=== PATIENT | male | born 1975 | race Two or more races ===

== ENCOUNTER 2019-12-14 16:10 | Emergency (ER) | payer OTHER ==
[2019-12-14 16:40] VITALS: TEMP 98.5; BMI 24.1
--- NOTE | 2019-12-14 17:04 | PDOC ---
History of Present Illness - General Chief Complaint: Palpitations Stated Complaint: PALPITATIONS Time Seen by Provider: 12/14/19 16:27 History Source: Patient Exam Limitations: No Limitations - History of Present Illness Initial Comments: 12/14/19 17:01 HPI: This is a 44 y/o male with no PMH presenting to the ED due to palpitations since Monday. The palpitations last a few seconds, and he has been experiencing them 1-2x per hour. They do not wake him up from sleep. He looked at his apple watch when he was feeling them, and said his pulse verito to around 80 for a few seconds from the 60's which is his baseline. He reports that his head feels alok rd during them, but denies weakness or lightheadedness. He denies any accompanying chest pain, SOB, N/V, or diaphoresis during these episodes. Nothing exacerbates them, and nothing alleviates them although he states when he is distracted he doesn't feel them as much. He tried to make an appointment with his primary care but they didn't have an appointment until the end of the month. ROS: GENERAL/CONSTITUTIONAL: No fever/chills. No weakness. CARDIOVASCULAR: No chest pain or shortness of breath. Yes palpitations RESPIRATORY: No cough, wheezing GASTROINTESTINAL: No nausea, vomiting, diarrhea or constipation. GENITOURINARY: No dysuria, frequency, or change in urination. NEUROLOGIC: No headache, vertigo, loss of consciousness, or change in str ength/sensation. HEMATOLOGIC/LYMPHATIC: No anemia, easy bleeding, or history of blood clots. ALLERGIC/IMMUNOLOGIC: No hives or skin allergy. PMH: Denied PSx: Denied Social Hx: Denied tobacco, 1-3 beers per evening Meds: Denied Allergies: Denied PE: GENERAL: Awake, alert, and fully oriented, in no acute distress. Patient laying in bed, conversing normally. HEAD: No signs of trauma EYES: PERRLA, EOMI, sclera anicteric, conjunctiva clear NECK: Normal ROM, supple, no lymphadenopathy, JVD, or masses LUNGS: Breath sounds equal, clear to auscultation bilaterally. No wheezes, and no crackles HEART: Regular rate and rhythm, normal S1 and S2, no murmurs, rubs or gallops ABDOMEN: Soft, nontender, normoactive bowel sounds. No guarding, no rebound. No masses EXTREMITIES: Normal range of motion, no edema. No clubbing or cyanosis. No cords, erythema, or tenderness NEUROLOGICAL: Cranial nerves II through XII grossly intact. Normal speech, normal gait SKIN: Warm, Dry, normal turgor, no rashes or lesions noted. MDM: This is a 44 y/o male with no PMH presenting to the ED due to palpitations since Monday. Pt in good health, regularly exercises, and has no cardiac risk factors. He reports the palpitations only bring his pulse up to 80. - Low suspicion for ACS or arrhythmia. - EKG with no acute ischemic changes, sinus, no t-wave inversions - Will do basic labs and one troponin - CBC - CMP - Troponin - Troponin neg, CBC and CMP without any acute concerns - Will d/c with return precautions and follow-up with PCP Past History - Medical History Allergies/Adverse Reactions: Allergies Allergy/AdvReac Type Severity Reaction Status Date / Time No Known Allergies Allergy Verified 12/14/19 16:18 Home Medications: Ambulatory Orders NK [No Known Home Medication] 12/14/19 COPD: No - Psycho-Social/Smoking History Smoking History: Never smoked Have you smoked in the past 12 months: No Information on smoking cessation initiated: No - Substance Abuse Hx (Audit-C & DAST Scrn) How often the patient has a drink containing alcohol: Monthly or less Number of drinks the patient has on a typical day: 1 or 2 How often the patient has six or more drinks on one occasion: Never Score: In Men: 4 or > Positive; In Women: 3 or > Positive: 1 Screen Result (Pos requires Nsg. Audit-10AR): Negative In the last yr the pt used illegal drug/Rx for NonMed reason: No Score: Yes response is considered Positive: 0 Screen Result (Positive result requires Nsg. DAST-10): Negative *Physical Exam - Vital Signs Last Vital Signs Temp Pulse Resp BP Pulse Ox 98.5 F 66 18 147/97 100 12/14/19 16:11 12/14/19 16:11 12/14/19 16:11 12/14/19 16:11 12/14/19 16:11 Heart Score/ECG Review - History History: Slightly suspicious - Electrocardiogram EKG: Normal - Age Age: </= 45 - Risk Factors Risk Factors Heart Score: Yes Positive family hx of cardiac disease Based on the list above the patient has:: 1-2 risk factors - Troponin Troponin: </= normal limit - Score Heart Score - Total: 1 - ECG Intrepretation Comment:: 12/14/19 17:[address]-elevations or T-wave inversions. Vent rate 57bpm. VT interval 126ms. QRS duration 92ms. QT/QTc 416/404. ED Treatment Course - LABORATORY CBC & Chemistry Diagram: 12/14/19 16:46 12/14/19 16:46 Discharge - Discharge Information Problems reviewed: Yes Clinical Impression/Diagnosis: Palpitations Condition: Stable Disposition: HOME - Admission No - Follow up/Referral - Patient Discharge Instructions Patient Printed Discharge Instructions: DI for Palpitations Additional Instructions: You came to the ED because you felt that you had palpitations. We did labwork, and an EKG and everything was normal. You did not have any symptoms while you were here. You should follow-up with your primary care provider in the next few weeks. Please return to the ED if you experience palpitations that wont go away, chest pain, SOB, or any other new or concerning symptoms. - Post Discharge Activity
[2019-12-14 17:12] LABS: BASO % 1.2 % (0-2.0); EOS % 1.9 % (0-4.5); HEMATOCRIT 40.5 % (35.4-49); LYMPH % 27.6 % (8-40); MCH 32.8 pg (25.7-33.7); MCHC 34.5 g/dl (32.0-35.9); MEAN CELL VOLUME 95.1 fl (80-96); MEAN PLT VOLUME 9.2 fl (7.5-11.1); MONO % 8.3 % (3.8-10.2); PLATELET COUNT 295 K/MM3 (134-434); RBC 4.26 M/mm3 (4.00-5.60); RDW 11.6 % (11.9-15.9); WHITE BLOOD COUNT 6.3 K/mm3 (4.0-10.8)
--- NOTE | 2019-12-14 17:14 | PDOC ---
Attending Attestation - Resident Resident Name: NachoNancy - ED Attending Attestation I have performed the following: I have examined & evaluated the patient, The case was reviewed & discussed with the resident, I agree w/resident's findings & plan, Exceptions are as noted - HPI HPI: 12/14/19 17:09 44 yo M p/w intermittent palpitations for the past few days, non-exertional, last a few seconds and resolve on their own. States has ~1-2 episodes/hour. Denies CP or lightheadedness. Not a/w SOB or diaphoresis or n/v. States he looked at his apple watch during the episodes and HR increased from 60 to 80 at that time. No infectious complaints. No recent travel. No LE swelling. States he has an appt with his PMD at the end of the month but didn't want to wait that long. - Physicial Exam PE: 12/14/19 17:11 General: well appearing HEENT: NCAT Chest: CTAB, good air entry, no wheezes rales or rhonchi CVS: + s1 s2, RRR, no murmurs rubs or gallops Extremities: warm and well perfused, no LE edema - Medical Decision Making 12/14/19 17:12 44 yo M with intermittent palpitations non-exertional and no associated symptoms, no symptoms at present time, unremarkable physical exam and EKG NSR withtout ischemic changes or evidence of a clinically significant arrythmia. Doubt ACS and unlikely PE as no SOB or chest pain. Give age and 1 family member with premature cardiac disease will check 1 set CE's. Plan: -labs -reassess, if no concerning findings on labs will d/c with return precautions, patient to f/u with his PMD This clinical encounter is taking place during a federal and state health care emergency attributable to the novel Henriquez Virus pandemic. The [employer] of the Department of Health and Human Services has declared, pursuant to the Public Health Service Act 319F-3 (42 U.S.C. 247d-6d), that a covered persons activities related to medical countermeasures against COVID-19 will be immune from liability under Federal and State law. Discharge - Discharge Information Problems reviewed: Yes Clinical Impression/Diagnosis: Palpitations Condition: Stable Disposition: HOME - Follow up/Referral - Patient Discharge Instructions Patient Printed Discharge Instructions: DI for Palpitations Additional Instructions: You came to the ED because you felt that you had palpitations. We did labwork, and an EKG and everything was normal. You did not have any symptoms while you were here. You should follow-up with your primary care provider in the next few weeks. Please return to the ED if you experience palpitations that wont go away, chest pain, SOB, or any other new or concerning symptoms. - Post Discharge Activity
[2019-12-14 17:19] LABS: ALBUMIN 4.8 g/dl (3.4-5.0); BILIRUBIN,TOTAL 1.7 mg/dl (0.2-1); CALCIUM 9.6 mg/dl (8.5-10); CREATININE 0.7 mg/dl (0.55-1.3); POTASSIUM 3.7 mmol/L (3.5-5.1); TOT PROT 7.7 g/dl (6.4-8.2)
[2019-12-14 17:47] VITALS: BP 121/85; PULSE 55
--- NOTE | 2019-12-16 09:23 | EKG ---
Test Reason : Blood Pressure : / mmHG Vent. Rate : 057 BPM Atrial Rate : 057 BPM P-R Int : 126 ms QRS Dur : 092 ms QT Int : 416 ms P-R-T Axes : 043 040 025 degrees QTc Int : 404 ms POOR DATA QUALITY, INTERPRETATION MAY BE ADVERSELY AFFECTED SINUS BRADYCARDIA OTHERWISE NORMAL ECG NO PREVIOUS ECGS AVAILABLE Confirmed by Abel Seaman ([id number]) on 12/16/2019 9:23:20 AM Referred By: Confirmed By:Abel Seaman
== END 2019-12-14 18:00 | disposition home or self-care (01) ==
LOC: FER 16:10
DX: R00.2 Palpitations (principal)
CPT/HCPCS: 36415; 80053; 84484; 85025; 93005; 99284-25